=== PATIENT | female | born 1950 | race Caucasian/White ===

== ENCOUNTER 2018-01-01 08:40 | Day surgery (SDC) | payer OTHER, MEDICARE ==
[~2018-01-01 08:40] MED LIST: ATROPINE 1 MG/10 ML SYRINGE IV; CEFAZOLIN 1 GM INJ; DIPHENHYDRAMINE 50 MG INJ IV; EPHEDrine SULFATE 50 MG/5 ML SYG IV; FENTAnyl 50 MCG/ML VIAL IV; HYDROmorphONE (0.2 MG/ML) 10ML SYG IV; LABETALOL HCL 20MG INJ IV; MEPERIDINE 25 MG INJ IV; MIDAZOLAM 1 MG/ML 2 ML INJ IV; ONDANSETRON 4 MG INJ IV; OXYCODONE/ACETAMINOPHEN (5/325) TAB PO; SUCCINYLCHOLINE CHLORIDE 100 MG/5 ML SYG IV; hydrALAzine 20 MG INJ IV; morphine (1 MG/ML) 10ML SYRINGE IV
[2018-01-01] MEDS ORDERED: LIDOCAINE 2% (SDV) 5 ML INJ (09:08)
[2018-01-01] MEDS ORDERED: MIDAZOLAM 1 MG/ML 2 ML INJ (09:08)
[2018-01-01] MEDS ORDERED: NEOSTIGMINE 3 MG/3 ML SYRINGE (09:08)
[2018-01-01] MEDS ORDERED: PROPOFOL 20 ML (09:08)
[2018-01-01] MEDS ORDERED: ROCURONIUM 50 MG INJ (09:08)
[2018-01-01] MEDS ORDERED: GLYCOPYRROLATE 0.4 MG INJ (09:08)
[2018-01-01] MEDS ORDERED: ROPIVACAINE 0.5 % 30 ML VIAL (09:09)
[2018-01-01] MEDS ORDERED: FENTAnyl 50 MCG/ML VIAL (09:09)
[2018-01-01] MEDS ORDERED: DEXAMETHASONE 4 MG/ML 1 ML INJ (09:10)
[2018-01-01] MEDS ORDERED: ONDANSETRON 4 MG INJ (09:10)
[2018-01-01] MEDS ORDERED: SOD CHLORIDE 0.9% 1,000 ML IV (11:44)
[2018-01-01] MEDS ORDERED: OXYCODONE/ACETAMINOPHEN (5/325) TAB PO ×2 (12:00)
[2018-01-01] MEDS ORDERED: POLYMYXIN/BACITRACIN 1L IRRIG (12:46)
[2018-01-01] MEDS: POVIDONE IODINE 10% 28.4 GM OINT (13:49)
[2018-01-01] MEDS: POLYMYXIN/BACITRACIN 1L IRRIG (13:56)
[2018-01-01] MEDS: BUPIVACAINE 0.5% (SDV) 30 ML INJ (13:56)
[2018-01-01] MEDS: morphine 2 MG INJ IV ×2 (14:46→15:24)
[2018-01-01] MEDS: ONDANSETRON 4 MG INJ IV (14:46)
[2018-01-01] MEDS ORDERED: HYDROmorphONE 0.5 MG/0.5 ML SYG IV (15:00)
== END 2018-01-01 17:00 | disposition home or self-care (01) ==
LOC: SDS 08:40
DX: M19.071 Primary osteoarthritis, right ankle and foot (principal); G20 Parkinson's disease; E78.5 Hyperlipidemia, unspecified; I10 Essential (primary) hypertension
CPT/HCPCS: 28291; 73660